=== PATIENT | female | born 1970 | race Caucasian/White ===

== ENCOUNTER 2024-11-22 11:57 | Emergency (ER) | payer SELFPAY ==
[~2024-11-22] VITALS: Ht 157.5 cm; Wt 53.1 kg
[2024-11-22 13:11] VITALS: PULSE 70; RESP 16; TEMP 98; O2SAT 100
[2024-11-22] MEDS: ONDANSETRON HCL INJ 2MG/ML 2ML 2 MG/ML VIAL IV STA (13:28)
[2024-11-22] MEDS: KETOROLAC TROMETHAMINE 30 MG/ML VIAL IV STA (13:29)
[2024-11-22 13:45] LABS: BASOPHILS % 0.2 % (0.0-1.0); EOSINOPHILS % 2.1 % (0.0-6.0); LYMPHOCYTES % 9.7 % (18.0-39.1); MONOCYTES % 6.1 % (4.4-11.3); NEUTROPHILS % 81.6 % (38.7-80.0); RED CELL DISTRIBUTION WIDTH 11.9 % (11.7-14.4)
[2024-11-22 13:57] LABS: INR 1.0
[2024-11-22 14:05] LABS: AMPHETAMINES SCREEN,URINE NEGATIVE (NEGATIVE); CANNABINOIDS SCREEN,URINE NEGATIVE (NEGATIVE); COCAINE SCREEN,URINE NEGATIVE (NEGATIVE); METHADONE SCREEN, URINE NEGATIVE (NEGATIVE); OPIATES SCREEN,URINE NEGATIVE (NEGATIVE)
[2024-11-22 14:08] LABS: EST GLOMERULAR FILTRATION RATE 105.0 ML/MIN (>=60)
[2024-11-22 14:11] LABS: LEUKOCYTE ESTERASE ,URINE NEGATIVE (NEGATIVE); PROTEIN,URINE DIPSTICK NEGATIVE (NEGATIVE); URINE UROBILINOGEN 0.2 mg/dL (0.2 - 1)
[2024-11-22 14:30] LABS: EPITHELIAL CELLS,URINE MODERATE /LPF
[2024-11-22 14:33] LABS: WBC,URINE (MAN) 0-5 /HPF (0-5)
[2024-11-22] MEDS: SODIUM CHLORIDE 0.9% 1000ML 1,000 ML IV STA (14:43)
[2024-11-22] MEDS ORDERED: IOPAMIDOL 370 MG/ML 100 ML INFUS..BTL INJ ONE (14:53)
== END 2024-11-22 16:53 | disposition home or self-care (01) ==
LOC: ER 13:15
DX: R10.84 Generalized abdominal pain (principal); K52.9 Noninfective gastroenteritis and colitis, unspecified; R11.2 Nausea with vomiting, unspecified
CPT/HCPCS: 36415; 74177; 76705; 80053; 80307; 81001; 83690; 83735; 85025; 85610; 85730; 99284; J1885; J2405; J2470; Q9967